=== PATIENT | female | born 1980 | race Caucasian/White ===

== ENCOUNTER 2024-08-03 09:00 | Outpatient (AMB) | payer OTHER, SELFPAY ==
[2024-08-03 09:19] VITALS: BP 143/83; PULSE 56; RESP 18; TEMP 36.4; O2SAT 56; BMI 29.2
--- NOTE | 2024-08-03 09:19 | GSCOFFNT_ITS ---
Vital Signs - [facility] 08/03/24 09:19 Height 1.8 m Height Method Stated Weight 95.028 kg Weight Measurement Method Standing Scale BMI 29.2 BP 143/83 H Blood Pressure Source Automatic Cuff Blood Pressure Location Right Upper Arm Position Sitting Respiration 18 Pulse 56 L Pulse Source Monitor Temp 97.6 F Temp Source Temporal Artery Scan Pulse Oximetry (%) 56 L Oxygen Delivery Method Room Air Med/Allergies Allergies & Medications Allergies No Known Drug Allergies Allergy (Verified 08/03/24 09:21) Medication Reconciliation sertraline 50 mg tablet 50 mg PO QDAY 08/03/24 [History Confirmed 08/03/24] MA Intake Visit Data Collection New Patient or Established: New Patient (never been to [facility]) Reason for Visit:: HEMORRHOIDS REFERRAL Pain Present Currently: No Pain Scale Used: Vela-Fonseca/Numerical Zone Maintenance Technician Required: No PCP or OBGYN visit in last 3 months: Yes Hx Now: No Do You Feel Safe at Home: Yes Authorities Contacted: N/A Smoking Status Smoking Status: Never smoker Immunization / Flu Flu Vaccine in the Last 12 Months: Yes Flu Vaccine Exclusion Criteria: Already Received Past Medical History Surgical History SURGICAL: Positive Tubal Ligation Social History SMOKING STATUS: Smoking status: Never smoker ALCOHOL: Alcohol Intake: Current ALCOHOL FREQUENCY: Alcohol Intake Frequency: holidays/special occasions only Travel Risk Travel Hx Recent Travel: No HPI HPI Narrative 43F referred for symptomatic hemorrhoids. Pt states she has had them since her pregnancies (her children are adults now) but they have been more bothersome in the past 6 mos or so. She reports discomfort, itching, bleeding and a hard lump on the inside of her anus which has persisted during this time. She uses topical lidocaine which provide minimal relief. She denies any changes in stool caliber, blood in stool, anorexia and unintentional weight loss. Her BMs are soft and regular, without any straining or diarrhea. She has not had a colonoscopy but her PCP did also refer her to GI PMH: Anxiety PSHx: Csections Meds: Sertraline Allergies: NKDA Social hx: Nonsmoker Family hx: No known CRC ROS Review of Systems Systems Reviewed: All systems reviewed, normal except as documented Objective/Exam General General Appearance: alert, cooperative and well groomed Resp Respiratory exam: Absent respiratory distress Rectal Rectal exam: Present other (right anterior external hemorrhoid) Assessment & Plan Diagnosis / Problem List (1) Hemorrhoids with complication: Status: Acute Assessment & Plan: 43F with symptomatic hemorrhoids refractory to conservative management. As pt has healthy bowel habits I explained that it is reasonable to pursue THD; I explained the procedure including benefits/risks of severe pain, infection, bleeding and hemorrhoid persistence/recurrence. 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
== END 2024-08-03 09:48 | disposition home or self-care (01) ==
LOC: HODSRG 09:00
PROVIDERS: Supervising Provider Surgery; Visit Provider Surgery
DX: K64.8 Other hemorrhoids (principal)
CPT/HCPCS: 99203; G0463